=== PATIENT | female | born 1950 ===

== ENCOUNTER → 2021-05-16 | Outpatient (CLI) | payer MEDICARE ==
--- NOTE | 2021-05-16 15:37 | RAD ---
Bone densitometry 05/16/2021 2:26 PM Indication: Reason: screening Comparison Study: None. Discussion: Bone Densitometry was performed with dual photon absorption of the lumbar spine and pro ximal femurs. Lumbar Spine: Bone average density is 0.683g/cm2 for L1-L4. T-Score is -4.1. Right femoral neck: Bone average density is 0.433g/cm2. T-Score is -4.4. IMPRESSION: Severe osteoporosis. Fracture risk is high. Therapeutic intervention recommended with con sideration of post therapeutic bone densitometry. Note: Definitions established by the [employer]: Normal: T-score is -1.0 or above. Osteopenia: T-score is between -1.0 and -2.5. Osteoporosis: T-score is -2.5 or below. Electronically signed by: Naresh Roy MD (05/16/2021 3:34 PM) [id number]
== END ==
LOC: DXRAD 14:22
PROVIDERS: ATTEND Family Medicine
DX: M81.0 Age-related osteoporosis without current pathological fracture (principal); Z78.0 Asymptomatic menopausal state; Z91.89 Other specified personal risk factors, not elsewhere classified
CPT/HCPCS: 77080